=== PATIENT | female | born 1995 | race Caucasian/White ===

== ENCOUNTER → 2020-02-20 | Outpatient (CLI) | payer BC ==
[~2020-02-20] MED LIST: BCP; CIPR500 PO; HYDACE5 PO; IBUP800 PO; IPRAOI INH; NAPR500 PO
== END | disposition home or self-care (01) ==
LOC: LAB 18:47 → LAB SHORT 18:47
PROVIDERS: Obstetrics & Gynecology
DX: Z01.419 Encounter for gynecological examination (general) (routine) without abnormal findings (principal)
CPT/HCPCS: G0123

== ENCOUNTER → 2023-05-18 | Outpatient (CLI) | payer BC | END | disposition home or self-care (01) | LOC: LAB 14:21 → LAB SHORT 14:21 | PROVIDERS: Obstetrics & Gynecology | DX: Z01.419 Encounter for gynecological examination (general) (routine) without abnormal findings (principal) | CPT/HCPCS: G0145 ==

== ENCOUNTER → 2025-10-09 | Outpatient (CLI) | payer BC | LOC: LAB 14:59 → LAB SHORT 14:59 | PROVIDERS: Obstetrics & Gynecology | DX: Z01.419 Encounter for gynecological examination (general) (routine) without abnormal findings (principal) | CPT/HCPCS: 87624; G0145 ==